=== PATIENT | male | born 1965 | race Caucasian/White ===

== ENCOUNTER 2016-09-22 12:13 | Emergency (ER) | payer SELFPAY ==
[2016-09-22 16:17] LABS: BASOPHILS 0.1 % (0-2); EOSINOPHILS 0.6 % (0-7); HEMATOCRIT 45.8 % (42.0-54.0); HEMOGLOBIN 15.4 g/dL (13.5-17.5); IMMATURE GRANULOCYTES 0.4 % (0-5); LYMPHOCYTES 18.3 % (15-50); MCH 30.4 pg (26.0-34.0); MCHC 33.6 g/dL (31.0-37.0); MCV 90.3 fL (80.0-100.0); MEAN PLATELET VOLUME 10.8 fL (7.4-10.4); MONOCYTES 9.2 % (2-11); NEUTROPHILS 71.4 % (40-80); PLATELET COUNT 204 10x3/uL (130-400); RBC 5.07 10x6/uL (4.20-6.10); WBC 11.1 10x3/uL (4.8-10.8)
[2016-09-22 16:36] LABS: ALBUMIN 3.4 g/dL (3.4-5.0); ALKALINE PHOSPHATASE 98 U/L (46-116); ALT (SGPT) 16 U/L (10-68); BILIRUBIN - TOTAL 0.82 mg/dL (0.2-1.3); CALC OSMOLALITY 278 mosm/kg (275-300); CARBON DIOXIDE 25.6 mmol/L (21.0-32.0); CHLORIDE - SERUM 101 mmol/L (98-107); CREATININE - SERUM 0.9 mg/dL (0.6-1.3); GLUCOSE 201 mg/dL (74-106); POTASSIUM - SERUM 4.1 mmol/L (3.5-5.1); PROTEIN - SERUM 7.6 g/dL (6.4-8.2); SODIUM 136 mmol/L (136-145); UREA NITROGEN 14 mg/dL (7-18); eGFR NON AFRICAN AMERICAN > 90 mL/min (90-120)
== END 2016-09-22 17:51 | disposition home or self-care (01) ==
LOC: D.ER 12:13
PROVIDERS: Family Medicine
DX: S02.82XA Fracture of other specified skull and facial bones, left side, initial encounter for closed fracture (principal); S02.81XA Fracture of other specified skull and facial bones, right side, initial encounter for closed fracture; S02.5XXA Fracture of tooth (traumatic), initial encounter for closed fracture; S02.2XXA Fracture of nasal bones, initial encounter for closed fracture; W22.8XXA Striking against or struck by other objects, initial encounter; Y93.89 Activity, other specified; Y92.89 Other specified places as the place of occurrence of the external cause; I10 Essential (primary) hypertension; E11.9 Type 2 diabetes mellitus without complications; F17.200 Nicotine dependence, unspecified, uncomplicated

== ENCOUNTER 2016-10-12 21:01 | Emergency (ER) | payer SELFPAY ==
[2016-10-12 22:43] LABS: BASOPHILS 0.1 % (0-2); EOSINOPHILS 0.3 % (0-7); HEMATOCRIT 37.8 % (42.0-54.0); HEMOGLOBIN 12.5 g/dL (13.5-17.5); IMMATURE GRANULOCYTES 0.2 % (0-5); LYMPHOCYTES 10.4 % (15-50); MCH 29.8 pg (26.0-34.0); MCHC 33.1 g/dL (31.0-37.0); MEAN PLATELET VOLUME 10.1 fL (7.4-10.4); MONOCYTES 4.5 % (2-11); NEUTROPHILS 84.5 % (40-80); RDW 12.5 % (11.5-14.5); WBC 9.6 10x3/uL (4.8-10.8)
[2016-10-12 22:44] LABS: PLATELET COUNT 297 10x3/uL (130-400)
[2016-10-12 22:50] LABS: KETONE - SERUM NEGATIVE (NEGATIVE)
[2016-10-12 22:57] LABS: ALBUMIN 3.2 g/dL (3.4-5.0); ALKALINE PHOSPHATASE 94 U/L (46-116); ALT (SGPT) 21 U/L (10-68); BILIRUBIN - TOTAL 0.31 mg/dL (0.2-1.3); CALC OSMOLALITY 288 mosm/kg (275-300); CALCIUM 8.2 mg/dL (8.5-10.1); CHLORIDE - SERUM 104 mmol/L (98-107); CREATININE - SERUM 0.9 mg/dL (0.6-1.3); POTASSIUM - SERUM 3.5 mmol/L (3.5-5.1); PROTEIN - SERUM 6.6 g/dL (6.4-8.2); SODIUM 139 mmol/L (136-145); UREA NITROGEN 8 mg/dL (7-18); eGFR NON AFRICAN AMERICAN > 90 mL/min (90-120)
[2016-10-12 22:58] LABS: GLUCOSE 325 mg/dL (74-106)
[2016-10-12 23:00] LABS: CREATINE KINASE 79 UL (21-232)
[2016-10-12 23:07] LABS: TROPONIN-I < 0.017 ng/mL (0.000-0.060)
== END 2016-10-13 00:29 | disposition home or self-care (01) ==
LOC: D.ER 21:01
PROVIDERS: Family Medicine
DX: R51 Headache (principal); R07.89 Other chest pain; I10 Essential (primary) hypertension; E11.9 Type 2 diabetes mellitus without complications; F17.200 Nicotine dependence, unspecified, uncomplicated

== ENCOUNTER 2019-07-26 12:44 | Emergency (ER) | payer SELFPAY ==
[~2019-07-26] VITALS: Ht 175.3 cm; Wt 77.3 kg
[2019-07-26 12:48] VITALS: Ht 175.3 cm; Wt 77.3 kg
[2019-07-26] MEDS ORDERED: GLUCOPHAGE1000 MG PO (12:49)
[2019-07-26] MEDS ORDERED: LIPITOR20 MG PO (12:50)
[2019-07-26] MEDS ORDERED: GLUCOTROL ER2.5 MG PO (12:50)
[2019-07-26] MEDS ORDERED: NAPROSYN500 MG PO (14:04)
[2019-07-26] MEDS ORDERED: ULTRAM50 MG PO (14:04)
[2019-07-26 14:55] VITALS: BP 160/77
== END 2019-07-26 14:56 | disposition home or self-care (01) ==
LOC: D.ER 12:44
DX: M54.32 Sciatica, left side (principal); E11.9 Type 2 diabetes mellitus without complications; I10 Essential (primary) hypertension; Z79.84 Long term (current) use of oral hypoglycemic drugs

== ENCOUNTER → 2019-08-30 10:25 | Outpatient (CLI) | payer OTHER ==
[2019-07-26 12:48] VITALS: BMI 25.1
[~2019-08-30 10:25] MED LIST: GLUCOPHAGE1000 MG PO; GLUCOTROL ER2.5 MG PO; LIPITOR20 MG PO; NAPROSYN500 MG PO; ULTRAM50 MG PO
== END | disposition home or self-care (01) ==
LOC: D.MRI 10:25
PROVIDERS: ATTEND Family Medicine Adult Medicine
DX: M54.32 Sciatica, left side (principal)